=== PATIENT | female | born 1965 | race Caucasian/White ===

== ENCOUNTER → 2024-10-03 13:38 | Outpatient (REF) | payer OTHER, SELFPAY | LOC: EMG 13:38 | PROVIDERS: ATTENDING PHYSICIAN Psychiatry & Neurology Neurology; FAMILY PHYSICIAN Family Medicine | DX: M54.12 Radiculopathy, cervical region (principal); R20.0 Anesthesia of skin | CPT/HCPCS: 95886; 95909 ==